=== PATIENT | female | born 1995 | race Caucasian/White ===

== ENCOUNTER 2024-01-12 15:22 | Emergency (ER) | payer BC ==
[2024-01-12] MEDS ORDERED: Lidocaine 1% w/Epinephrine 1:200K 30 ML VIAL ONE (17:14)
[2024-01-12] MEDS ORDERED: Ibuprofen 200 MG TAB ONE (17:14)
[2024-01-12] MEDS ORDERED: Boostrix 0.5 ML (Tdap) VIAL (>/=7 yrs of age) ONE (17:15)
[2024-01-12] MEDS ORDERED: Bacitracin 1 PK ONE (18:55)
== END 2024-01-12 19:12 | disposition home or self-care (01) ==
LOC: CSHERS 15:22
DX: S61.451A Open bite of right hand, initial encounter (principal); S61.411A Laceration without foreign body of right hand, initial encounter; Z23 Encounter for immunization; W54.0XXA Bitten by dog, initial encounter
CPT/HCPCS: 12001; 90471; 90715